=== PATIENT | female | born 1960 | race Caucasian/White ===

== ENCOUNTER 2016-03-24 10:44 | Day surgery (SDC) | payer BC ==
[~2016-03-24] VITALS: Ht 162.6 cm; Wt 77.1 kg
[~2016-03-24 10:44] MED LIST: DOCUSATE SODIU100 MG PO; HYDROCODON-ACE1 EAC9 PO; LISINOPRIL10 MG PO; LISINOPRIL20 MG PO; LISINOPRIL5 MG PO; LOPRESSOR25 MG PO; NAPROSYN500 MG PO; NORCO 7.5/321 TABLET PO; PERCOCET 5/31 TABLET PO; PREDNISONE20 MG PO; PRILOSEC20 MG PO; SENNA8.6 MG PO; TRAMADOL HCL50 MG PO; VALIUM5 MG PO; VITAMIN D32000 UNI1 PO
== END 2016-03-24 12:25 | disposition home or self-care (01) ==
LOC: PAIN 10:44 → SDC 11:15 → PAIN 11:15
DX: M47.896 Other spondylosis, lumbar region (principal); F41.1 Generalized anxiety disorder; M54.32 Sciatica, left side; M41.9 Scoliosis, unspecified; K21.9 Gastro-esophageal reflux disease without esophagitis; E78.5 Hyperlipidemia, unspecified; M79.1 Myalgia; F17.200 Nicotine dependence, unspecified, uncomplicated; J43.9 Emphysema, unspecified; I10 Essential (primary) hypertension
CPT/HCPCS: J1030; J2250; J3010; S0020

== ENCOUNTER 2016-09-04 16:14 | Emergency (ER) | payer BC ==
[~2016-09-04] VITALS: Ht 162.6 cm; Wt 74.5 kg
[2016-09-04 16:57] LABS: HEMATOCRIT 38.2 % (36.0-46.0); MCH 33.4 PG (29.0-34.0); MCHC 34.6 G/DL (30.0-36.0); MCV 96.7 FL (83-99); MEAN PLAT.VOLUME 8.8 uM^3 (9.5-12.4); PLATELET COUNT 206 K/uL (156-360); RBC DIS.WIDTH-CV 12.6 % (11.8-14.6); RBC DIS.WIDTH-SD 44.9 % (39-53); RED BLOOD COUNT 3.95 M/uL (3.80-5.20); WHITE BLOOD COUNT 9.4 K/uL (4.1-10.2)
[2016-09-04 17:05] LABS: CHLORIDE 104 mEq/L (99-109); POTASSIUM 4.3 mEq/L (3.7-5.4); SODIUM 136 mEq/L (136-147)
[2016-09-04 17:08] LABS: GLUCOSE 89 mg/dL (70-99)
[2016-09-04 17:09] LABS: ANION GAP 12 MEQ/L (2-14)
[2016-09-04 17:10] LABS: TOTAL BILIRUBIN 0.4 mg/dL (0.0-1.0)
[2016-09-04 17:11] LABS: ALKALINE PHOSPHATASE 92 IU/L (3-129)
[2016-09-04 17:12] LABS: GFR ESTIMATE (CALCULATED) > 59 mL/min/
[2016-09-04 17:13] LABS: DIRECT BILIRUBIN 0.2 mg/dL (0.0-0.3); UREA NITROGEN (BUN) 17 mg/dL (9-23)
[2016-09-04 17:15] LABS: LIPASE 40 U/L (1.0-51.0)
[2016-09-04 17:18] LABS: TROP-I INTERPRETATION NEGATIVE; TROPONIN-I < 0.01 ng/mL (0.0-0.30)
[2016-09-04 18:08] LABS: ADD MIUA? NO; BILIRUBIN NEGATIVE; BLOOD NEGATIVE; COLOR YELLOW ((YELLOW)); GLUCOSE (STRIP) NEGATIVE; KETONES NEGATIVE; LEUKOCYTES NEGATIVE; NITRITE NEGATIVE; PROTEIN (STRIP) NEGATIVE; SPECIFIC GRAVITY 1.004 (1.000-1.030); UCUL ADDED? NO; UROBILINOGEN 0.2 MG/DL (0.2-1.0)
[2016-09-04] MEDS ORDERED: LISINOPRIL30 MG PO (18:36)
[2016-09-04 19:03] VITALS: BP 169/82
== END 2016-09-04 19:03 | disposition left against medical advice (07) ==
LOC: EME 16:14
PROVIDERS: Emergency Medicine
DX: R07.9 Chest pain, unspecified (principal); R10.13 Epigastric pain; I10 Essential (primary) hypertension; F17.200 Nicotine dependence, unspecified, uncomplicated; K21.9 Gastro-esophageal reflux disease without esophagitis
CPT/HCPCS: 71020; 76705; 80048; 80076; 81003; 83690; 84484; 85027; 93005; 99281; 99285

== ENCOUNTER 2016-10-10 05:20 | Day surgery (SDC) | payer BC ==
[~2016-10-10] VITALS: Ht 162.6 cm; Wt 74.4 kg
[~2016-10-10 05:20] MED LIST changes: +LISINOPRIL30 MG PO; +OMEPRAZOLE40 M1 PO
[2016-10-10 05:59] VITALS: BP 154/72
[2016-10-10 07:16] LABS: ANION GAP 8 MEQ/L (2-14); CHLORIDE 101 MEQ/L (99-109); POTASSIUM 4.8 MEQ/L (3.7-5.4); SAMPLE HEMOLYSIS CHECK 0; SAMPLE ICTERIC CHECK 0; SAMPLE LIPEMIA CHECK 0; SODIUM 136 MEQ/L (136-147)
[2016-10-10 07:21] LABS: GFR ESTIMATE (CALCULATED) > 59 mL/min/; GLUCOSE 120 mg/dL (70-99); UREA NITROGEN (BUN) 13 mg/dL (9-23)
[2016-10-10] MEDS ORDERED: COLACE100 MG PO (10:56)
[2016-10-10] MEDS ORDERED: PERCOCET 5/31 TABLET PO (10:56)
[2016-10-10 11:53] VITALS: BP 125/58
[2016-10-10 12:48] VITALS: BP 121/62
[2016-10-10 13:53] VITALS: BP 129/67
== END 2016-10-10 13:59 | disposition home or self-care (01) ==
LOC: SDC 05:20 → EDSTATUS 10:43 → 2SOUTH 10:43 → SDC 10:45
PROVIDERS: Surgery
PROC: 0FT44ZZ Resection of Gallbladder, Percutaneous Endoscopic Approach (ICD-10-PCS; principal; 2016-10-10)
DX: K80.12 Calculus of gallbladder with acute and chronic cholecystitis without obstruction (principal); K21.9 Gastro-esophageal reflux disease without esophagitis; I10 Essential (primary) hypertension; G89.29 Other chronic pain; M54.5 Low back pain; F17.200 Nicotine dependence, unspecified, uncomplicated; M47.816 Spondylosis without myelopathy or radiculopathy, lumbar region; K44.9 Diaphragmatic hernia without obstruction or gangrene; J43.9 Emphysema, unspecified; E78.5 Hyperlipidemia, unspecified; E04.2 Nontoxic multinodular goiter; E66.3 Overweight; Z68.28 Body mass index [BMI] 28.0-28.9, adult; Z90.5 Acquired absence of kidney; Z81.1 Family history of alcohol abuse and dependence; Z82.5 Family history of asthma and other chronic lower respiratory diseases; Z83.3 Family history of diabetes mellitus; Z82.49 Family history of ischemic heart disease and other diseases of the circulatory system; Z83.511 Family history of glaucoma; Z84.1 Family history of disorders of kidney and ureter
CPT/HCPCS: 80048; 88304; J0131; J0690; J1100; J1170; J2250; J2405; J2710; J2765; J3010